=== PATIENT | male | born 1945 | race Caucasian/White ===

== ENCOUNTER 2021-05-01 19:04 | Inpatient (IN) | payer MEDICARE, BC ==
[2021-05-01 22:43] VITALS: BMI 25.2
[2021-05-01] MEDS ORDERED: Acetaminophen 325 MG TAB PO PRN (23:32)
[2021-05-01] MEDS ORDERED: Ondansetron ODT 4 MG TAB PO PRN (23:32)
[2021-05-02 00:35] LABS: #Basophils 0.1 thou/uL (0.0-0.2); #Lymphocytes 1.6 thou/uL (1.20-3.40); #Monocytes 0.3 thou/uL (0.11-0.59); #Neutrophils 2.4 thou/uL (1.40-6.50); %Basophils 2.3 % (0.0-1.0); %Lymphocytes 36.6 % (21.0-51.0); %Neutrophils 55.1 % (42.0-75.0); Hemoglobin 14.6 g/dL (14.0-18.0); Mean Corpuscular HGB CONC 33.5 g/dL (32.0-36.0); Mean Corpuscular Hemoglobin 30.2 pg (27.0-31.0); Mean Corpuscular Volume 90.2 fL (78.0-98.0); Mean Platelet Volume 10.5 fL (7.4-10.4); Platelet Count 102 thou/uL (130-400); Platelet Morphology Comment Appears Decreased; RBC Distribution Width 11.9 % (11.5-14.5); RBC Morphology Normal; Red Blood Cell (RBC) Count 4.83 mill/uL (4.70-6.10); White Blood Cell (WBC) Count 4.4 thou/uL (4.8-10.8)
[2021-05-02 00:37] LABS: ALT (SGPT) 40 U/L (8-55); AST (SGOT) 76 U/L (5-34); Albumin 3.3 g/dL (3.4-4.8); Alkaline Phosphatase 76 U/L (40-110); BUN (Urea Nitrogen) 20 mg/dL (8.4-25.7); Bilirubin, Total 0.3 mg/dL (0.2-1.2); Calc. Creatinine Clearance 80 mL/min (70-130); Carbon Dioxide 19 mmol/L (23-31); Chloride 103 mmol/L (98-107); Globulin 2.4 g/dL (2.4-3.5); Glucose 137 mg/dL (83-110); Protein, Total 5.7 g/dL (5.8-8.1); Sodium 135 mmol/L (136-145)
[2021-05-02 00:47] LABS: Anion Gap 17 mmol/L (10-20)
[2021-05-02] MEDS: Benzonatate 100 MG CAP PO PRN ×3 (03:08→19:55)
[2021-05-02] MEDS: GUAIFENESIN SF SOLN 200 MG/10 ML UDCUP PO PRN ×3 (03:44→19:54)
[2021-05-02 07:50] LABS: Hemoglobin 14.4 g/dL (14.0-18.0); Mean Corpuscular HGB CONC 33.1 g/dL (32.0-36.0); Mean Corpuscular Hemoglobin 29.8 pg (27.0-31.0); Mean Corpuscular Volume 90.1 fL (78.0-98.0); Mean Platelet Volume 10.3 fL (7.4-10.4); Platelet Count 106 thou/uL (130-400); RBC Distribution Width 11.7 % (11.5-14.5); Red Blood Cell (RBC) Count 4.82 mill/uL (4.70-6.10); White Blood Cell (WBC) Count 3.2 thou/uL (4.8-10.8)
[2021-05-02 08:03] LABS: ALT (SGPT) 37 U/L (8-55); AST (SGOT) 68 U/L (5-34); Albumin 3.2 g/dL (3.4-4.8); Alkaline Phosphatase 72 U/L (40-110); Anion Gap 12 mmol/L (10-20); BUN (Urea Nitrogen) 19 mg/dL (8.4-25.7); Bilirubin, Total 0.3 mg/dL (0.2-1.2); CRP (Inflammatory) 9.75 mg/dL (= or < 0.5); Calc. Creatinine Clearance 94 mL/min (70-130); Calcium 7.9 mg/dL (7.8-10.44); Carbon Dioxide 23 mmol/L (23-31); Chloride 105 mmol/L (98-107); Globulin 2.3 g/dL (2.4-3.5); Glucose 138 mg/dL (83-110); Potassium 4.2 mmol/L (3.5-5.1); Protein, Total 5.5 g/dL (5.8-8.1); Sodium 136 mmol/L (136-145)
[2021-05-02 08:09] LABS: Band 17 % (5-11); Lymphocytes 49 % (21-51); MDiff Complete? YES; Monocytes 4 % (0-10); Myelocyte 3 % (0-0); Neutrophil 21 % (42-75); Reactive Lymphocytes 6 % (0-10)
[2021-05-02] MEDS: Amlodipine 10 MG TAB PO SCH (08:09)
[2021-05-02] MEDS: Enoxaparin Sodium 40 MG/0.4 ML SYRINGE SC SCH (08:09)
[2021-05-02] MEDS: Losartan 25 MG TAB PO SCH (08:09)
[2021-05-02] MEDS: CeleCOXIB 100 MG CAP PO SCH (08:09)
[2021-05-02] MEDS: Zinc Sulfate 220 MG CAP PO SCH (08:09)
[2021-05-02] MEDS: Aspirin Chewable 81 MG TAB PO SCH (08:10)
[2021-05-02] MEDS ORDERED: Dexamethasone 1 MG TAB PO SCH (09:15)
[2021-05-03] MEDS: CeleCOXIB 100 MG CAP PO SCH (07:45)
[2021-05-03] MEDS: Losartan 25 MG TAB PO SCH (07:45)
[2021-05-03] MEDS: Amlodipine 10 MG TAB PO SCH ×2 (07:46→07:59)
[2021-05-03] MEDS: Enoxaparin Sodium 40 MG/0.4 ML SYRINGE SC SCH (07:46)
[2021-05-03] MEDS: Zinc Sulfate 220 MG CAP PO SCH (07:46)
[2021-05-03] MEDS: Aspirin Chewable 81 MG TAB PO SCH (07:46)
[2021-05-03] MEDS ORDERED: Dexamethasone 4 MG TAB PO SCH (08:00)
[2021-05-03 08:25] VITALS: BP 131/73; TEMP 98.2
== END 2021-05-03 13:05 | disposition home or self-care (01) | DRG 177 ==
LOC: INTOOBSV 19:04 → T4-B 19:04 → OBSVTOIN 05-03 10:20
PROVIDERS: ADMIT Family Medicine; ATTEND Family Medicine
PROC: 8E0ZXY6 Isolation (ICD-10-PCS; principal; 2021-05-03)
DX: U07.1 COVID-19 (principal); J12.82 Pneumonia due to coronavirus disease 2019; J96.01 Acute respiratory failure with hypoxia; R78.89 Finding of other specified substances, not normally found in blood; D69.6 Thrombocytopenia, unspecified; I10 Essential (primary) hypertension; Z79.899 Other long term (current) drug therapy; Z79.82 Long term (current) use of aspirin
CPT/HCPCS: 36415; 80053; 84145; 85025; 86140; 96372; G0378; J1650; J8540

== ENCOUNTER 2022-10-02 10:03 | Outpatient (CLI) | payer MEDICARE ==
[2022-10-02 11:28] LABS: #Basophils 0.1 10x3/uL (0.0-0.2); #Eosinphils 0.2 10x3/uL (0.0-0.5); #Monocytes 0.8 10x3/uL (0.0-1.1); #Neutrophils 4.9 10x3/uL (1.5-8.4); %Basophils 0.7 % (0.0-2.0); %Eosinophils 1.9 % (0.0-6.0); %Lymphocytes 29.8 % (18.0-47.0); %Monocytes 9.4 % (0.0-10.0); %Neutrophils 57.8 % (40.0-75.0); Hemoglobin 13.6 g/dL (13.5-17.5); Mean Corpuscular HGB CONC 32.6 g/dL (32.0-36.0); Mean Corpuscular Hemoglobin 29.2 pg (27.0-33.0); Mean Corpuscular Volume 89.5 fl (81.2-95.1); Platelet Count 242 10x3/uL (150-450); RBC Distribution Width 13.6 % (11.5-14.5); Red Blood Cell (RBC) Count 4.66 10x6/uL (4.32-5.72); White Blood Cell (WBC) Count 8.5 10x3/uL (3.5-10.5)
[2022-10-02 11:41] LABS: Anion Gap 12 mmol/L (10-20); BUN (Urea Nitrogen) 27 mg/dL (8.4-25.7); Calc. Creatinine Clearance 0 mL/min (70-130); Calcium 9.1 mg/dL (7.8-10.44); Carbon Dioxide 23 mmol/L (23-31); Chloride 109 mmol/L (98-107); Estimated GFR 89; Glucose 95 mg/dL (83-110); Potassium 4.3 mmol/L (3.5-5.1); Sodium 140 mmol/L (136-145)
== END 2022-10-02 10:04 | disposition home or self-care (01) ==
LOC: LABBT 10:03
PROVIDERS: ATTEND Orthopaedic Surgery Sports Medicine
DX: Z01.818 Encounter for other preprocedural examination (principal); M19.012 Primary osteoarthritis, left shoulder
CPT/HCPCS: 80048; 85025; 93005; 93010

== ENCOUNTER 2022-10-16 06:08 | Observation (INO) | payer BC, MEDICARE ==
[2022-10-14 13:31] VITALS: BMI 26.2
[2022-10-16] MEDS ORDERED: Tranexamic Acid 1,000 MG/10 ML VIAL ONE (07:02)
[2022-10-16] MEDS ORDERED: Vancomycin (BATCH) 1.5 GRAM/300 ML BAG ONE (07:02)
[2022-10-16] MEDS ORDERED: Sodium Chloride 0.9% 100 ML ONE ×2 (07:02→08:54)
[2022-10-16] MEDS ORDERED: Ropivacaine 0.5% HCl/PF (150 MG/30 ML VIAL) ONE (07:54)
[2022-10-16] MEDS ORDERED: Lidocaine 1% (PF) 30 ML VIAL ONE (07:54)
[2022-10-16] MEDS ORDERED: Fentanyl 100 MCG/2 ML VIAL ONE ×4 (07:54→12:31)
[2022-10-16] MEDS ORDERED: Midazolam HCl 2 mg/2 ml Vial ONE (07:54)
[2022-10-16] MEDS ORDERED: fentaNYL PF 100 MCG/2 ML SYRINGE ONE (08:29)
[2022-10-16] MEDS ORDERED: Fentanyl 100 MCG/2 ML VIAL SLOW IVP PRN (08:40)
[2022-10-16] MEDS ORDERED: Promethazine HCl 25 MG/ML VIAL IM PRN (08:45)
[2022-10-16] MEDS ORDERED: Zolpidem Tartrate 5 MG TAB PO PRN (08:45)
[2022-10-16] MEDS ORDERED: Ropivacaine 0.2% 550 ML 550 ML NERVE BLCK SCH (08:45)
[2022-10-16] MEDS ORDERED: traMADol HCl 50 MG TAB PO PRN ×2 (08:45)
[2022-10-16] MEDS ORDERED: Ondansetron PF 4 MG/2 ML Vial IVP PRN (08:45)
[2022-10-16] MEDS ORDERED: HYDROcodone/Acetaminophen 5/325 mg Tablet PO PRN (08:45)
[2022-10-16] MEDS ORDERED: CEFAZOLIN 2 GM VIAL ONE (08:54)
[2022-10-16] MEDS ORDERED: PROPOFOL 200 MG/20 ML VIAL ONE (09:09)
[2022-10-16] MEDS ORDERED: Esmolol 100 MG/10 ML VIAL ONE (09:09)
[2022-10-16] MEDS ORDERED: Rocuronium Bromide 10 MG/ML (10ML VIAL) ONE (09:09)
[2022-10-16] MEDS ORDERED: Bupivacaine PF 0.5% 30 ML VIAL ONE (09:09)
[2022-10-16] MEDS ORDERED: Dexamethasone 20 MG/5 ML VIAL ONE (09:09)
[2022-10-16] MEDS ORDERED: Lidocaine 1% PF 5 ML VIAL ONE (09:09)
[2022-10-16] MEDS ORDERED: ePHEDrine 50 MG/ML VIAL ONE (09:09)
[2022-10-16] MEDS ORDERED: SUGAMMADEX SODIUM 200 MG/2 ML VIAL ONE (10:05)
[2022-10-16] MEDS ORDERED: diphenhydrAMINE 25 MG CAP PO PRN (10:54)
[2022-10-16 12:54] LABS: SARS-CoV-2 NAA Rapid Test Not Detected (NotDetected)
[2022-10-16] MEDS: Ketorolac Tromethamine 30 MG/ML VIAL IVP SCH ×2 (13:40→17:24)
[2022-10-16] MEDS: Dextrose 5 %-0.45 % NaCl 1,000 ML IV SCH (13:42)
[2022-10-16] MEDS: CEFAZOLIN 2 GM in Sodium Chloride 0.9% 100 ML IVPB SCH (16:23)
[2022-10-16] MEDS: HYDROcodone/Acetaminophen 5/325 mg Tablet PO PRN (18:21)
[2022-10-16] MEDS: CeleCOXIB 100 MG CAP PO SCH (20:23)
[2022-10-17] MEDS: CEFAZOLIN 2 GM in Sodium Chloride 0.9% 100 ML IVPB SCH (01:31)
[2022-10-17] MEDS: Ketorolac Tromethamine 30 MG/ML VIAL IVP SCH ×3 (05:23→12:02)
[2022-10-17] MEDS: Dextrose 5 %-0.45 % NaCl 1,000 ML IV SCH (05:29)
[2022-10-17] MEDS ORDERED: CO Q-10 CAPSULE 100 MG PO SCH (09:00)
[2022-10-17] MEDS ORDERED: Losartan 25 MG TAB PO SCH (09:00)
[2022-10-17] MEDS ORDERED: Amlodipine 10 MG TAB PO SCH (09:00)
[2022-10-17] MEDS ORDERED: Potassium Chloride 10 MEQ TAB PO SCH (09:00)
[2022-10-17] MEDS ORDERED: Multivitamin w/Zinc Stress 1 TAB PO SCH (09:00)
[2022-10-17] MEDS ORDERED: Zinc Sulfate 220 MG CAP PO SCH (09:00)
[2022-10-17] MEDS ORDERED: Cholecalciferol 1,000 UNITS (25 MCG) TAB PO SCH (09:00)
[2022-10-17] MEDS ORDERED: Magnesium Oxide 250 MG TAB PO SCH (09:00)
[2022-10-17] MEDS ORDERED: Aspirin Chewable 81 MG TAB PO SCH (09:00)
[2022-10-17] MEDS: CeleCOXIB 100 MG CAP PO SCH (09:36)
[2022-10-17] MEDS: HYDROcodone/Acetaminophen 5/325 mg Tablet PO PRN (12:05)
[2022-10-17 13:11] VITALS: BP 158/80; TEMP 98.1
== END 2022-10-17 14:04 | disposition home or self-care (01) ==
LOC: SDC 06:08 → SJJU 13:46
PROVIDERS: ADMIT Orthopaedic Surgery; ATTEND Orthopaedic Surgery
PROC: 0RRK0JZ Replacement of Left Shoulder Joint with Synthetic Substitute, Open Approach (ICD-10-PCS; principal; 2022-10-16)
DX: M19.012 Primary osteoarthritis, left shoulder (principal); M19.011 Primary osteoarthritis, right shoulder; I10 Essential (primary) hypertension; Z79.82 Long term (current) use of aspirin; Z79.899 Other long term (current) drug therapy; Z91.041 Radiographic dye allergy status; Z20.822 Contact with and (suspected) exposure to COVID-19
CPT/HCPCS: 96365; 96366; 96375; 96376; A4306; C1713; C1776; C1889; G0378; J1100; J1885; J2001; J2250; J2704; J2795; J3010; J3370; J3490; J7042; S0020